=== PATIENT | female | born 1990 | race African-American/Black ===

== ENCOUNTER 2017-04-09 18:14 | Inpatient (IN) | payer OTHER ==
[~2017-04-09] VITALS: Ht 162.6 cm; Wt 83.9 kg
[2017-04-09 19:22] LABS: BASO % 0 % (0-3); EOS % 1 % (0-3); HEMATOCRIT 38.5 % (36.0-47.0); HEMOGLOBIN 12.8 g/dL (12.0-15.5); LYMPH # 2.1 x10^3/uL (1.0-4.8); LYMPH % 29 % (24-48); MEAN CORPUSCULAR HEMOGLOBIN 30 pg (25-35); MEAN CORPUSCULAR HGB CONC 33 g/dL (31-37); MEAN CORPUSCULAR VOLUME 90 fL (79-100); MONO % 6 % (0-9); NEUT % 65 % (31-73); PLATELET COUNT 251 x10^3/uL (140-400); RED BLOOD COUNT 4.27 x10^6/uL (3.50-5.40); RED CELL DISTRIBUTION WIDTH 13.5 % (11.5-14.5); WHITE BLOOD COUNT 7.2 x10^3/uL (4.0-11.0)
[2017-04-09 19:25] LABS: BARBITURATES NEG (NEG); BENZODIAZEPINES NEG (NEG); CANNABINOIDS NEG (NEG); COCAINE POS (NEG); METHADONE NEG (NEG); OPIATES NEG (NEG); PHENCYCLIDINE NEG (NEG)
[2017-04-09 19:31] LABS: CREATININE 0.9 mg/dL (0.6-1.0); GFR 90.2; NEG OBC SER NEG; POS OBC SER POS; POTASSIUM 3.7 mmol/L (3.5-5.1)
[2017-04-09 19:36] LABS: ALBUMIN 3.3 g/dL (3.4-5.0); ALBUMIN/GLOBULIN RATIO 0.8 (1.0-1.7); TOTAL BILIRUBIN 0.2 mg/dL (0.2-1.0); TOTAL PROTEIN 7.5 g/dL (6.4-8.2)
--- NOTE | 2017-04-09 19:38 | PDOC1 ---
History and Physical Date of Admission Date of Admission 04/09/17 Identification/Chief Complaint Chief Complaint suicidal ideation Problems: Source Source: Chart review, Patient History of Present Illness History of Present Illness 27yo F, was sent by family for taking ativan for suicide. pt is drowsy in ER3, most history got from ERP. PT took about 25pills of 1mg ativan today to try to kill herself, then told family who sent her here. When i asked her why and how much she took, she doesnot answer me. She looks drowsy, arousable, but not willing to answer my questions. She also denies ideation to hurt other people, but refuse to say if still suicide now or not. denies fever, chills, sob, chest pain. most labs are pending. Past Medical History Past Medical History none Past Surgical History Past Surgical History: No pertinent history Family History Family History: Hypertension Social History Smoke: No ALCOHOL: none Drugs: None Allergies Allergies Allergies Coded Allergies Type Severity Reaction Last Updated Verified No Known Drug Allergies 05/17/15 No ROS Review of System CONSTITUTIONAL: No fever or chills EYES: No recent changes SKIN: No rash or itching CARDIOVASCULAR: No chest pain, syncope, palpitations, or edema RESPIRATORY: No SOB or cough GASTROINTESTINAL: No nausea, vomiting or abdominal pain NEUROLOGICAL: No headaches or weakness ENDOCRINE: No cold or heat intolerance GENITOURINARY: No urgency or frequency of urination MUSCULOSKELETAL: No back pain or joint pain LYMPHATICS: No enlarged lymph nodes PSYCHIATRIC: No anxiety or depression Physical Exam Physical Exam GEN.: No apparent distress. drowsy HEENT: Head is normocephalic, atraumatic NECK: Supple. LUNGS: Clear to auscultation. HEART: RRR, S1, S2 present. Peripheral pulses intact ABDOMEN: Soft, nontender. Positive bowel sounds. EXTREMITIES: Without any cyanosis. NEUROLOGIC: Normal speech, normal tone PSYCHIATRIC: Normal affect, normal mood. SKIN: No ulcerations Vitals Vitals Vital Signs Date Time Temp Pulse Resp B/P (MAP) Pulse Ox O2 Delivery O2 Flow Rate FiO2 04/09/17 18:26 99.0 80 18 135/77 (96) 98 Room Air 99.0 Labs Labs Laboratory Tests Test 04/09/17 18:40 White Blood Count 7.2 x10^3/uL (4.0-11.0) Red Blood Count 4.27 x10^6/uL (3.50-5.40) Hemoglobin 12.8 g/dL (12.0-15.5) Hematocrit 38.5 % (36.0-47.0) Mean Corpuscular Volume 90 fL (79-100) Mean Corpuscular Hemoglobin 30 pg (25-35) Mean Corpuscular Hemoglobin Concent 33 g/dL (31-37) Red Cell Distribution Width 13.5 % (11.5-14.5) Platelet Count 251 x10^3/uL (140-400) Neutrophils (%) (Auto) 65 % (31-73) Lymphocytes (%) (Auto) 29 % (24-48) Monocytes (%) (Auto) 6 % (0-9) Eosinophils (%) (Auto) 1 % (0-3) Basophils (%) (Auto) 0 % (0-3) Neutrophils # (Auto) 4.7 x10^3uL (1.8-7.7) Lymphocytes # (Auto) 2.1 x10^3/uL (1.0-4.8) Monocytes # (Auto) 0.4 x10^3/uL (0.0-1.1) Eosinophils # (Auto) 0.0 x10^3/uL (0.0-0.7) Basophils # (Auto) 0.0 x10^3/uL (0.0-0.2) Serum Test, Qualitative Negative (NEG) Laboratory Tests Test 04/09/17 18:40 White Blood Count 7.2 x10^3/uL (4.0-11.0) Red Blood Count 4.27 x10^6/uL (3.50-5.40) Hemoglobin 12.8 g/dL (12.0-15.5) Hematocrit 38.5 % (36.0-47.0) Mean Corpuscular Volume 90 fL (79-100) Mean Corpuscular Hemoglobin 30 pg (25-35) Mean Corpuscular Hemoglobin Concent 33 g/dL (31-37) Red Cell Distribution Width 13.5 % (11.5-14.5) Platelet Count 251 x10^3/uL (140-400) Neutrophils (%) (Auto) 65 % (31-73) Lymphocytes (%) (Auto) 29 % (24-48) Monocytes (%) (Auto) 6 % (0-9) Eosinophils (%) (Auto) 1 % (0-3) Basophils (%) (Auto) 0 % (0-3) Neutrophils # (Auto) 4.7 x10^3uL (1.8-7.7) Lymphocytes # (Auto) 2.1 x10^3/uL (1.0-4.8) Monocytes # (Auto) 0.4 x10^3/uL (0.0-1.1) Eosinophils # (Auto) 0.0 x10^3/uL (0.0-0.7) Basophils # (Auto) 0.0 x10^3/uL (0.0-0.2) Serum Test, Qualitative Negative (NEG) VTE Prophylaxis Ordered VTE Prophylaxis Devices: Yes VTE Pharmacological Prophylaxi: Yes Assessment/Plan Assessment/Plan ativan overdose suicidal ideation plan: ICU monitor npo for now, when more awake , should be able to take po diet 1 to 1 ob PAT consult ivf dvt, gi ppx fu labs IGNACIO DICKERSON MD Apr 09, 2017 19:38
[2017-04-09 19:41] LABS: ETHANOL < 10 mg/dL (0-10)
[2017-04-09] MEDS ORDERED: ONDANSETRON PF 4 MG/2 ML VIAL. IV PRN ×2 (19:45→21:45)
[2017-04-09] MEDS ORDERED: MORPHINE SULFATE 4 MG/ML DISP.SYRIN. IV PRN (19:45)
[2017-04-09] MEDS ORDERED: IV NORMAL SALINE 1000ML BAG 1,000 ML IV PRN (19:45)
[2017-04-09] MEDS ORDERED: ACETAMINOPHEN 325 MG TABLET. PO PRN (19:45)
[2017-04-09] MEDS ORDERED: traMADol 50 MG TABLET PO PRN (19:45)
[2017-04-09] MEDS ORDERED: hydrALAZINE 20 MG/ML VIAL. IVP PRN (19:45)
[2017-04-09] MEDS ORDERED: DOCUSATE SODIUM 100 MG CAPSULE. PO PRN (19:45)
[2017-04-09] MEDS: ENOXAPARIN 40 MG/0.4 ML SYRINGE. SQ SCH (20:19)
[2017-04-09] MEDS: FAMOTIDINE 20 MG/2 ML VIAL IVP SCH (20:53)
--- NOTE | 2017-04-09 21:15 | PHYS DOC ---
Past Medical History Past Medical History: Anxiety, Depression Past Surgical History: Cholecystectomy Alcohol Use: Occasionally Drug Use: None Adult General Chief Complaint Chief Complaint: OVERDOSE HPI HPI Patient is a 27 year old -[place] female with history of depression, anxiety and previous intentional drug overdose who presents with intentional drug overdose. Patient states she took between 25-30 mg Ativan tablets prior to ED arrival. Patient is unable to provide timeline is minimally cooperative with history. Patient also has prescriptions for trazodone and Ambien on her person but denies taking either of these medications. Patient last filled Ativan prescription 6 days prior to ED arrival. Patient has somnolence. She is tearful Review of Systems Review of Systems Constitutional: Denies fever or chills [] Eyes: Denies change in visual acuity, redness, or eye pain [] HENT: Denies nasal congestion or sore throat [] Respiratory: Denies cough or shortness of breath [] Cardiovascular: No additional information not addressed in HPI [] GI: Denies abdominal pain, nausea, vomiting, bloody stools or diarrhea [] : Denies dysuria or hematuria [] Musculoskeletal: Denies back pain or joint pain [] Integument: Denies rash or skin lesions [] Neurologic: Denies headache, focal weakness or sensory changes [] Endocrine: Denies polyuria or polydipsia [] Current Medications Current Medications Current Medications Medications (Trade) Dose Ordered Sig/Melissa Start Time Stop Time Status Last Admin Dose Admin Acetaminophen (Tylenol) 650 mg PRN Q6HRS PRN 04/09/17 19:45 Docusate Sodium (Colace) 100 mg PRN DAILY PRN 04/09/17 19:45 Enoxaparin Sodium (Lovenox 40mg Syringe) 40 mg Q24H 04/09/17 20:00 04/09/17 20:19 40 MG Famotidine (Pepcid) 20 mg QHS 04/09/17 21:00 04/09/17 20:53 20 MG Hydralazine HCl (Apresoline) 10 mg PRN Q4HRS PRN 04/09/17 19:45 Morphine Sulfate 2 mg PRN Q2HR PRN 04/09/17 19:45 Ondansetron HCl (Zofran) 4 mg PRN Q6HRS PRN 04/09/17 19:45 Sodium Chloride 1,000 ml @ 100 mls/hr CONT PRN 04/09/17 19:45 Tramadol HCl (Ultram) 50 mg PRN Q6HRS PRN 04/09/17 19:45 Allergies Allergies Allergies Coded Allergies Type Severity Reaction Last Updated Verified No Known Drug Allergies 05/17/15 No Physical Exam Physical Exam Constitutional: Well developed, well nourished, no acute distress, non-toxic appearance. [] HENT: Normocephalic, atraumatic, bilateral external ears normal, oropharynx moist, no oral exudates, nose normal. [] Eyes: PERRLA, EOMI, conjunctiva normal, no discharge. [] Neck: Normal range of motion, no tenderness, supple, no stridor. [] Cardiovascular:Heart rate regular rhythm, no murmur [] Lungs & Thorax: Bilateral breath sounds clear to auscultation [] Abdomen: Bowel sounds normal, soft, no tenderness, no masses, no pulsatile masses. [] Skin: Warm, dry, no erythema, no rash. [] Back: No tenderness, no CVA tenderness. [] Extremities: No tenderness, no cyanosis, no clubbing, ROM intact, no edema. [] Neurologic: Alert and oriented X 3, normal motor function, normal sensory function, no focal deficits noted. [] Psychologic: Affect normal, judgement normal, mood normal. [] Current Patient Data Vital Signs Vital Signs Date Time Temp Pulse Resp B/P (MAP) Pulse Ox O2 Delivery O2 Flow Rate FiO2 04/09/17 20:00 86 18 112/75 (87) 97 04/09/17 18:26 99.0 Room Air 99.0 Lab Values Laboratory Tests Test 04/09/17 18:40 04/09/17 19:05 White Blood Count 7.2 x10^3/uL (4.0-11.0) Red Blood Count 4.27 x10^6/uL (3.50-5.40) Hemoglobin 12.8 g/dL (12.0-15.5) Hematocrit 38.5 % (36.0-47.0) Mean Corpuscular Volume 90 fL (79-100) Mean Corpuscular Hemoglobin 30 pg (25-35) Mean Corpuscular Hemoglobin Concent 33 g/dL (31-37) Red Cell Distribution Width 13.5 % (11.5-14.5) Platelet Count 251 x10^3/uL (140-400) Neutrophils (%) (Auto) 65 % (31-73) Lymphocytes (%) (Auto) 29 % (24-48) Monocytes (%) (Auto) 6 % (0-9) Eosinophils (%) (Auto) 1 % (0-3) Basophils (%) (Auto) 0 % (0-3) Neutrophils # (Auto) 4.7 x10^3uL (1.8-7.7) Lymphocytes # (Auto) 2.1 x10^3/uL (1.0-4.8) Monocytes # (Auto) 0.4 x10^3/uL (0.0-1.1) Eosinophils # (Auto) 0.0 x10^3/uL (0.0-0.7) Basophils # (Auto) 0.0 x10^3/uL (0.0-0.2) Sodium Level 138 mmol/L (136-145) Potassium Level 3.7 mmol/L (3.5-5.1) Chloride Level 103 mmol/L (98-107) Carbon Dioxide Level 27 mmol/L (21-32) Anion Gap 8 (6-14) Blood Urea Nitrogen 9 mg/dL (7-20) Creatinine 0.9 mg/dL (0.6-1.0) Estimated GFR (Cockcroft-Gault) 90.2 BUN/Creatinine Ratio 10 (6-20) Glucose Level 81 mg/dL (70-99) Calcium Level 9.0 mg/dL (8.5-10.1) Total Bilirubin 0.2 mg/dL (0.2-1.0) Aspartate Amino Transferase (AST) 12 U/L (15-37) L Alanine Aminotransferase (ALT) 19 U/L (14-59) Alkaline Phosphatase 70 U/L (46-116) Total Protein 7.5 g/dL (6.4-8.2) Albumin 3.3 g/dL (3.4-5.0) L Albumin/Globulin Ratio 0.8 (1.0-1.7) L Serum Test, Qualitative Negative (NEG) Acetaminophen Level < 2 mcg/ml (10-30) L Acetaminophen Last Dose Date Unknown Acetaminophen Last Dose Time Unknown Ethyl Alcohol Level < 10 mg/dL (0-10) Urine Opiates Screen Neg (NEG) Urine Methadone Screen Neg (NEG) Urine Barbiturates Neg (NEG) Urine Phencyclidine Screen Neg (NEG) Urine Amphetamine/Methamphetamine Neg (NEG) Urine Benzodiazepines Screen Neg (NEG) Urine Cocaine Screen Pos (NEG) Urine Cannabinoids Screen Neg (NEG) Urine Ethyl Alcohol Neg (NEG) Laboratory Tests 04/09/17 18:40 Laboratory Tests 04/09/17 18:40 EKG EKG [EKG: Normal sinus rhythm, st T wave changes, QTC normal, normal QRS interval.] Radiology/Procedures Radiology/Procedures [] Course & Med Decision Making Course & Med Decision Making Pertinent Labs and Imaging studies reviewed. (See chart for details) [Presentation consistent with Ativan overdose. Patient's vital signs stable. Patient is alert and able to follow commands throughout stay in the ED. Airway remains intact. Will admit to ICU for further observation. Dr. Randolph in the ED for admission] Dragon Disclaimer Dragon Disclaimer This electronic medical record was generated, in whole or in part, using a voice recognition dictation system. Departure Departure Impression: Primary Impression: Suicidal behavior Additional Impression: Intentional drug overdose Disposition: ADMITTED INPATIENT Admitting Physician: Juan F Randolph Condition: STABLE Referrals: NO PCP (PCP) Problem Qualifiers NEELIMA YANES DO Apr 09, 2017 21:15
[2017-04-10 05:38] LABS: BASO % 1 % (0-3); EOS % 1 % (0-3); HEMATOCRIT 38.5 % (36.0-47.0); HEMOGLOBIN 13.3 g/dL (12.0-15.5); LYMPH # 2.1 x10^3/uL (1.0-4.8); LYMPH % 38 % (24-48); MEAN CORPUSCULAR HEMOGLOBIN 31 pg (25-35); MEAN CORPUSCULAR HGB CONC 35 g/dL (31-37); MEAN CORPUSCULAR VOLUME 89 fL (79-100); MONO % 5 % (0-9); NEUT % 55 % (31-73); PLATELET COUNT 259 x10^3/uL (140-400); RED BLOOD COUNT 4.34 x10^6/uL (3.50-5.40); RED CELL DISTRIBUTION WIDTH 13.2 % (11.5-14.5); WHITE BLOOD COUNT 5.5 x10^3/uL (4.0-11.0)
[2017-04-10 06:13] LABS: CREATININE 0.8 mg/dL (0.6-1.0); GFR 103.3; POTASSIUM 3.6 mmol/L (3.5-5.1)
--- NOTE | 2017-04-10 06:58 | EKG ---
[facility] [address] [place] [address] Test Date: 2017-04-09 Test Time: 18:56:14 Pat Name: HELDER VICTORIA Department: Room: [facility] Gender: F Receiving Worker: : 1990 Requested By: NEELIMA YANES Order Number: [id number] Reading MD: Javid Connolly Measurements Intervals [place] Rate: 76 P: 52 NE: 168 QRS: 73 QRSD: 82 T: 41 QT: 376 QTc: 422 Interpretive Statements SINUS RHYTHM QRS(T) CONTOUR ABNORMALITY CANNOT RULE OUT ANTEROSEPTAL MYOCARDIAL DAMAGE T ABNORMALITY IN ANTERIOR LEADS Electronically Signed On 05-02-2017 15:59:41 CDT by Javid Connolly
[2017-04-10 08:35] VITALS: BP 108/72
[2017-04-10] MEDS ORDERED: LORA-434 PO (09:07)
[2017-04-10] MEDS ORDERED: ZOLP10TA PO (09:08)
[2017-04-10] MEDS ORDERED: TRAZ50TA15 PO (09:10)
[2017-04-10] MEDS ORDERED: ORTHOEVRA (09:12)
[2017-04-10] MEDS ORDERED: ESCITALOPRAM OX10 MG PO (09:12)
--- NOTE | 2017-04-10 10:58 | PDOC ---
PROGRESS NOTES Chief Complaint Chief Complaint Suicidal Ideation Attempted OD depression Anxiety History of Present Illness History of Present Illness 27 y/o female presents with SI and OD attempt. The pt reportedly took around 25- 30 tablets of 1 mg Ativan, after which she told her family, who brought the patient to the ED. She was then admitted. This patient has a hx of depression, as well as, anxiety for which she is prescribed the Ativan. She also has a history of SI and previous drug overdose attempts. Pt seen at bedside. She is awake and able to hold a full conversation, however; she does not make good eye contact. She appears well and is in no acute distress. When discussing her motive for her OD attempt the patient reports that she has 2 children that she is raising all by herself which makes things difficult for her. The father of the children does no pay child support and does not see the them. She reports financial troubles in that her car recently broke down. She wanted to trade it in but was not able to due to financial reasons. The patient continues to report SI and when asked if she is currently suicidal stated "I dont think it stops". Also of note, the patients urine drug screen is positive for cocaine. Will continue 1:1 monitoring. Await PAT input for further plan of care. Vitals Vitals Vital Signs Date Time Temp Pulse Resp B/P (MAP) Pulse Ox O2 Delivery O2 Flow Rate FiO2 04/10/17 08:48 Room Air 04/10/17 08:35 98.0 82 20 108/72 (84) 98 98.0 Physical Exam Physical Exam Speaks in full sentences. Able to hold a full conversation. Poor eye contact. Flat affect. General: Alert, Oriented X3, Cooperative, No acute distress Heart: Regular rate, Normal S1, Normal S2 Lungs: Clear Abdomen: Normal bowel sounds, Soft, No tenderness, No hepatosplenomegaly, No masses Extremities: No clubbing, No cyanosis, No edema, Normal pulses Skin: No rashes, No breakdown Labs LABS Laboratory Tests Test 04/09/17 18:40 04/09/17 19:05 04/10/17 05:26 White Blood Count 7.2 x10^3/uL (4.0-11.0) 5.5 x10^3/uL (4.0-11.0) Red Blood Count 4.27 x10^6/uL (3.50-5.40) 4.34 x10^6/uL (3.50-5.40) Hemoglobin 12.8 g/dL (12.0-15.5) 13.3 g/dL (12.0-15.5) Hematocrit 38.5 % (36.0-47.0) 38.5 % (36.0-47.0) Mean Corpuscular Volume 90 fL (79-100) 89 fL (79-100) Mean Corpuscular Hemoglobin 30 pg (25-35) 31 pg (25-35) Mean Corpuscular Hemoglobin Concent 33 g/dL (31-37) 35 g/dL (31-37) Red Cell Distribution Width 13.5 % (11.5-14.5) 13.2 % (11.5-14.5) Platelet Count 251 x10^3/uL (140-400) 259 x10^3/uL (140-400) Neutrophils (%) (Auto) 65 % (31-73) 55 % (31-73) Lymphocytes (%) (Auto) 29 % (24-48) 38 % (24-48) Monocytes (%) (Auto) 6 % (0-9) 5 % (0-9) Eosinophils (%) (Auto) 1 % (0-3) 1 % (0-3) Basophils (%) (Auto) 0 % (0-3) 1 % (0-3) Neutrophils # (Auto) 4.7 x10^3uL (1.8-7.7) 3.0 x10^3uL (1.8-7.7) Lymphocytes # (Auto) 2.1 x10^3/uL (1.0-4.8) 2.1 x10^3/uL (1.0-4.8) Monocytes # (Auto) 0.4 x10^3/uL (0.0-1.1) 0.3 x10^3/uL (0.0-1.1) Eosinophils # (Auto) 0.0 x10^3/uL (0.0-0.7) 0.0 x10^3/uL (0.0-0.7) Basophils # (Auto) 0.0 x10^3/uL (0.0-0.2) 0.0 x10^3/uL (0.0-0.2) Sodium Level 138 mmol/L (136-145) 139 mmol/L (136-145) Potassium Level 3.7 mmol/L (3.5-5.1) 3.6 mmol/L (3.5-5.1) Chloride Level 103 mmol/L (98-107) 104 mmol/L (98-107) Carbon Dioxide Level 27 mmol/L (21-32) 29 mmol/L (21-32) Anion Gap 8 (6-14) 6 (6-14) Blood Urea Nitrogen 9 mg/dL (7-20) 7 mg/dL (7-20) Creatinine 0.9 mg/dL (0.6-1.0) 0.8 mg/dL (0.6-1.0) Estimated GFR (Cockcroft-Gault) 90.2 103.3 BUN/Creatinine Ratio 10 (6-20) Glucose Level 81 mg/dL (70-99) 80 mg/dL (70-99) Calcium Level 9.0 mg/dL (8.5-10.1) 9.0 mg/dL (8.5-10.1) Total Bilirubin 0.2 mg/dL (0.2-1.0) Aspartate Amino Transf (AST/SGOT) 12 U/L (15-37) Alanine Aminotransferase (ALT/SGPT) 19 U/L (14-59) Alkaline Phosphatase 70 U/L (46-116) Total Protein 7.5 g/dL (6.4-8.2) Albumin 3.3 g/dL (3.4-5.0) Albumin/Globulin Ratio 0.8 (1.0-1.7) Serum Test, Qualitative Negative (NEG) Acetaminophen Level < 2 mcg/ml (10-30) Acetaminophen Last Dose Date Unknown Acetaminophen Last Dose Time Unknown Ethyl Alcohol Level < 10 mg/dL (0-10) Urine Opiates Screen Neg (NEG) Urine Methadone Screen Neg (NEG) Urine Barbiturates Neg (NEG) Urine Phencyclidine Screen Neg (NEG) Urine Amphetamine/Methamphetamine Neg (NEG) Urine Benzodiazepines Screen Neg (NEG) Urine Cocaine Screen Pos (NEG) Urine Cannabinoids Screen Neg (NEG) Urine Ethyl Alcohol Neg (NEG) Review of Systems Review of Systems Gen: + fatigue, no fevers or chills CV: No CP or palpitations Resp: No SOB or wheezing psych: + SI, denies HI Assessment and Plan Assessmemt and Plan Problems Medical Problems: (1) Intentional drug overdose Status: Acute Assessment: SI Intentional drug OD history of intentional drug OD anxiety depression Plan: continue to monitor with 1:1 observation PO diet if patient tolerates home meds PT/OT recheck labs Await PAT input for further plan of care Problems: Comment Review of Relevant I have reviewed the following items geno (where applicable) has been applied. Labs Laboratory Tests Test 04/09/17 18:40 04/09/17 19:05 04/10/17 05:26 White Blood Count 7.2 x10^3/uL (4.0-11.0) 5.5 x10^3/uL (4.0-11.0) Red Blood Count 4.27 x10^6/uL (3.50-5.40) 4.34 x10^6/uL (3.50-5.40) Hemoglobin 12.8 g/dL (12.0-15.5) 13.3 g/dL (12.0-15.5) Hematocrit 38.5 % (36.0-47.0) 38.5 % (36.0-47.0) Mean Corpuscular Volume 90 fL (79-100) 89 fL (79-100) Mean Corpuscular Hemoglobin 30 pg (25-35) 31 pg (25-35) Mean Corpuscular Hemoglobin Concent 33 g/dL (31-37) 35 g/dL (31-37) Red Cell Distribution Width 13.5 % (11.5-14.5) 13.2 % (11.5-14.5) Platelet Count 251 x10^3/uL (140-400) 259 x10^3/uL (140-400) Neutrophils (%) (Auto) 65 % (31-73) 55 % (31-73) Lymphocytes (%) (Auto) 29 % (24-48) 38 % (24-48) Monocytes (%) (Auto) 6 % (0-9) 5 % (0-9) Eosinophils (%) (Auto) 1 % (0-3) 1 % (0-3) Basophils (%) (Auto) 0 % (0-3) 1 % (0-3) Neutrophils # (Auto) 4.7 x10^3uL (1.8-7.7) 3.0 x10^3uL (1.8-7.7) Lymphocytes # (Auto) 2.1 x10^3/uL (1.0-4.8) 2.1 x10^3/uL (1.0-4.8) Monocytes # (Auto) 0.4 x10^3/uL (0.0-1.1) 0.3 x10^3/uL (0.0-1.1) Eosinophils # (Auto) 0.0 x10^3/uL (0.0-0.7) 0.0 x10^3/uL (0.0-0.7) Basophils # (Auto) 0.0 x10^3/uL (0.0-0.2) 0.0 x10^3/uL (0.0-0.2) Sodium Level 138 mmol/L (136-145) 139 mmol/L (136-145) Potassium Level 3.7 mmol/L (3.5-5.1) 3.6 mmol/L (3.5-5.1) Chloride Level 103 mmol/L (98-107) 104 mmol/L (98-107) Carbon Dioxide Level 27 mmol/L (21-32) 29 mmol/L (21-32) Anion Gap 8 (6-14) 6 (6-14) Blood Urea Nitrogen 9 mg/dL (7-20) 7 mg/dL (7-20) Creatinine 0.9 mg/dL (0.6-1.0) 0.8 mg/dL (0.6-1.0) Estimated GFR (Cockcroft-Gault) 90.2 103.3 BUN/Creatinine Ratio 10 (6-20) Glucose Level 81 mg/dL (70-99) 80 mg/dL (70-99) Calcium Level 9.0 mg/dL (8.5-10.1) 9.0 mg/dL (8.5-10.1) Total Bilirubin 0.2 mg/dL (0.2-1.0) Aspartate Amino Transf (AST/SGOT) 12 U/L (15-37) Alanine Aminotransferase (ALT/SGPT) 19 U/L (14-59) Alkaline Phosphatase 70 U/L (46-116) Total Protein 7.5 g/dL (6.4-8.2) Albumin 3.3 g/dL (3.4-5.0) Albumin/Globulin Ratio 0.8 (1.0-1.7) Serum Test, Qualitative Negative (NEG) Acetaminophen Level < 2 mcg/ml (10-30) Acetaminophen Last Dose Date Unknown Acetaminophen Last Dose Time Unknown Ethyl Alcohol Level < 10 mg/dL (0-10) Urine Opiates Screen Neg (NEG) Urine Methadone Screen Neg (NEG) Urine Barbiturates Neg (NEG) Urine Phencyclidine Screen Neg (NEG) Urine Amphetamine/Methamphetamine Neg (NEG) Urine Benzodiazepines Screen Neg (NEG) Urine Cocaine Screen Pos (NEG) Urine Cannabinoids Screen Neg (NEG) Urine Ethyl Alcohol Neg (NEG) Laboratory Tests Test 04/09/17 18:40 04/09/17 19:05 04/10/17 05:26 White Blood Count 7.2 x10^3/uL (4.0-11.0) 5.5 x10^3/uL (4.0-11.0) Red Blood Count 4.27 x10^6/uL (3.50-5.40) 4.34 x10^6/uL (3.50-5.40) Hemoglobin 12.8 g/dL (12.0-15.5) 13.3 g/dL (12.0-15.5) Hematocrit 38.5 % (36.0-47.0) 38.5 % (36.0-47.0) Mean Corpuscular Volume 90 fL (79-100) 89 fL (79-100) Mean Corpuscular Hemoglobin 30 pg (25-35) 31 pg (25-35) Mean Corpuscular Hemoglobin Concent 33 g/dL (31-37) 35 g/dL (31-37) Red Cell Distribution Width 13.5 % (11.5-14.5) 13.2 % (11.5-14.5) Platelet Count 251 x10^3/uL (140-400) 259 x10^3/uL (140-400) Neutrophils (%) (Auto) 65 % (31-73) 55 % (31-73) Lymphocytes (%) (Auto) 29 % (24-48) 38 % (24-48) Monocytes (%) (Auto) 6 % (0-9) 5 % (0-9) Eosinophils (%) (Auto) 1 % (0-3) 1 % (0-3) Basophils (%) (Auto) 0 % (0-3) 1 % (0-3) Neutrophils # (Auto) 4.7 x10^3uL (1.8-7.7) 3.0 x10^3uL (1.8-7.7) Lymphocytes # (Auto) 2.1 x10^3/uL (1.0-4.8) 2.1 x10^3/uL (1.0-4.8) Monocytes # (Auto) 0.4 x10^3/uL (0.0-1.1) 0.3 x10^3/uL (0.0-1.1) Eosinophils # (Auto) 0.0 x10^3/uL (0.0-0.7) 0.0 x10^3/uL (0.0-0.7) Basophils # (Auto) 0.0 x10^3/uL (0.0-0.2) 0.0 x10^3/uL (0.0-0.2) Sodium Level 138 mmol/L (136-145) 139 mmol/L (136-145) Potassium Level 3.7 mmol/L (3.5-5.1) 3.6 mmol/L (3.5-5.1) Chloride Level 103 mmol/L (98-107) 104 mmol/L (98-107) Carbon Dioxide Level 27 mmol/L (21-32) 29 mmol/L (21-32) Anion Gap 8 (6-14) 6 (6-14) Blood Urea Nitrogen 9 mg/dL (7-20) 7 mg/dL (7-20) Creatinine 0.9 mg/dL (0.6-1.0) 0.8 mg/dL (0.6-1.0) Estimated GFR (Cockcroft-Gault) 90.2 103.3 BUN/Creatinine Ratio 10 (6-20) Glucose Level 81 mg/dL (70-99) 80 mg/dL (70-99) Calcium Level 9.0 mg/dL (8.5-10.1) 9.0 mg/dL (8.5-10.1) Total Bilirubin 0.2 mg/dL (0.2-1.0) Aspartate Amino Transf (AST/SGOT) 12 U/L (15-37) Alanine Aminotransferase (ALT/SGPT) 19 U/L (14-59) Alkaline Phosphatase 70 U/L (46-116) Total Protein 7.5 g/dL (6.4-8.2) Albumin 3.3 g/dL (3.4-5.0) Albumin/Globulin Ratio 0.8 (1.0-1.7) Serum Test, Qualitative Negative (NEG) Acetaminophen Level < 2 mcg/ml (10-30) Acetaminophen Last Dose Date Unknown Acetaminophen Last Dose Time Unknown Ethyl Alcohol Level < 10 mg/dL (0-10) Urine Opiates Screen Neg (NEG) Urine Methadone Screen Neg (NEG) Urine Barbiturates Neg (NEG) Urine Phencyclidine Screen Neg (NEG) Urine Amphetamine/Methamphetamine Neg (NEG) Urine Benzodiazepines Screen Neg (NEG) Urine Cocaine Screen Pos (NEG) Urine Cannabinoids Screen Neg (NEG) Urine Ethyl Alcohol Neg (NEG) Medications Current Medications Acetaminophen (Tylenol) 650 mg PRN Q6HRS PRN PO FEVER; Start 04/09/17 at 19:45 Ondansetron HCl (Zofran) 4 mg PRN Q6HRS PRN IV NAUSEA/VOMITING; Start 04/09/17 at 19:45 Morphine Sulfate 2 mg PRN Q2HR PRN IV PAIN; Start 04/09/17 at 19:45 Tramadol HCl (Ultram) 50 mg PRN Q6HRS PRN PO PAIN; Start 04/09/17 at 19:45 Hydralazine HCl (Apresoline) 10 mg PRN Q4HRS PRN IVP ELEVATED BP, SEE COMMENTS ; Start 04/09/17 at 19:45 Docusate Sodium (Colace) 100 mg PRN DAILY PRN PO CONSTIPATION; Start 04/09/17 at 19:45 Sodium Chloride 1,000 ml @ 100 mls/hr CONT PRN IV SEE I/O RECORD; Start at 19:45 Famotidine (Pepcid) 20 mg QHS IVP Last administered on 04/09/17 20:53; Start 04/09/17 at 21:00 Enoxaparin Sodium (Lovenox 40mg Syringe) 40 mg Q24H SQ Last administered on 10/ 2/17at 20:19; Start 04/09/17 at 20:00 Ondansetron HCl (Zofran) 4 mg PRN Q8HRS PRN IV NAUSEA/VOMITING; Start 04/09/17 at 21:45; Stop 04/09/17 at 21:45; Status DC Active Scripts Active Reported Escitalopram Oxalate 10 Mg Tablet 5 Mg PO DAILY [orthoevra] WEEKLY Trazodone Hcl 50 Mg Tablet 25 Mg PO HS Ambien (Zolpidem Tartrate) 10 Mg Tablet 1 Tab PO QHS Ativan (Lorazepam) 1 Mg Tablet 1-2 Mg PO PRN DAILY Vitals/I & O Vital Sign - Last 24 Hours 04/09/17 04/09/17 04/09/17 04/09/17 18:26 18:45 19:00 19:15 Temp 99.0 99.0 Pulse 80 78 78 82 Resp 18 18 20 18 B/P (MAP) 135/77 (96) 125/80 (95) 117/75 (89) 121/68 (85) Pulse Ox 98 100 99 99 O2 Delivery Room Air 04/09/17 04/09/17 04/09/17 04/09/17 19:30 19:45 20:00 20:15 Pulse 82 84 86 76 Resp 18 16 18 20 B/P (MAP) 127/75 (92) 106/71 (83) 112/75 (87) 112/70 (84) Pulse Ox 98 96 97 97 04/09/17 04/09/17 04/09/17 04/09/17 20:30 20:45 21:00 21:15 Pulse 72 72 72 78 Resp 20 18 18 16 B/P (MAP) 109/71 (84) 117/75 (89) 98/55 (69) 104/67 (79) Pulse Ox 96 96 94 96 04/09/17 04/09/17 04/09/17 04/09/17 21:30 21:45 22:00 22:15 Pulse 82 82 76 78 Resp 18 16 18 18 B/P (MAP) 110/58 (75) 115/63 (80) 111/78 (89) 113/77 (89) Pulse Ox 95 96 98 98 04/09/17 04/09/17 04/09/17 04/09/17 22:30 22:45 23:00 23:15 Pulse 60 74 80 70 Resp 16 18 16 18 B/P (MAP) 84/47 (59) 86/54 (65) 107/64 (78) 101/61 (74) Pulse Ox 96 94 97 97 04/09/17 04/09/17 04/10/17 04/10/17 23:30 23:45 00:00 00:15 Pulse 70 70 72 96 Resp 16 18 18 16 B/P (MAP) 97/74 (82) 95/73 (80) 118/70 (86) Pulse Ox 97 97 98 100 04/10/17 04/10/17 04/10/17 04/10/17 00:30 01:15 01:30 01:45 Pulse 66 90 70 74 Resp 18 20 23 19 B/P (MAP) 131/85 (100) 137/74 (95) 127/85 (99) Pulse Ox 100 100 100 99 04/10/17 04/10/17 04/10/17 04/10/17 02:00 02:15 02:30 02:45 Pulse 80 76 68 70 Resp 30 18 20 18 B/P (MAP) 124/74 (91) 118/78 (91) 123/75 (91) 111/71 (84) Pulse Ox 99 99 100 99 04/10/17 04/10/17 04/10/17 04/10/17 03:00 03:15 03:30 03:45 Pulse 74 80 84 86 Resp 18 20 18 20 B/P (MAP) 112/75 (87) 119/71 (87) 118/70 (86) 117/70 (86) Pulse Ox 99 97 97 97 04/10/17 04/10/17 04/10/17 04/10/17 04:00 04:15 04:30 05:00 Pulse 78 72 84 86 Resp 18 18 20 20 B/P (MAP) 128/68 (88) 135/68 (90) 119/74 (89) 87/48 (61) Pulse Ox 97 96 96 95 04/10/17 04/10/17 04/10/17 04/10/17 05:30 06:30 08:35 08:48 Temp 98.0 98.0 Pulse 84 92 82 Resp 18 20 20 B/P (MAP) 118/65 (82) 106/64 (78) 108/72 (84) Pulse Ox 95 97 98 O2 Delivery Room Air Room Air SEBAS BARNEY III DO Apr 10, 2017 10:58
[2017-04-10 11:00] VITALS: BP 111/68
[2017-04-10 15:00] VITALS: BP 112/68
[2017-04-10 19:00] VITALS: BP 119/80
[2017-04-10] MEDS: ENOXAPARIN 40 MG/0.4 ML SYRINGE. SQ SCH (20:36)
[2017-04-10] MEDS: FAMOTIDINE 20 MG/2 ML VIAL IVP SCH (20:36)
[2017-04-10] MEDS ORDERED: ZOLPIDEM 5 MG TABLET. PO PRN (21:45)
[2017-04-10 23:00] VITALS: BP 115/59
[2017-04-11 03:00] VITALS: BP 112/53
[2017-04-11 04:33] LABS: BASO % 0 % (0-3); EOS % 1 % (0-3); HEMATOCRIT 38.5 % (36.0-47.0); HEMOGLOBIN 12.8 g/dL (12.0-15.5); LYMPH # 2.4 x10^3/uL (1.0-4.8); LYMPH % 44 % (24-48); MEAN CORPUSCULAR HEMOGLOBIN 30 pg (25-35); MEAN CORPUSCULAR HGB CONC 33 g/dL (31-37); MEAN CORPUSCULAR VOLUME 91 fL (79-100); MONO % 7 % (0-9); NEUT % 47 % (31-73); PLATELET COUNT 244 x10^3/uL (140-400); RED BLOOD COUNT 4.25 x10^6/uL (3.50-5.40); RED CELL DISTRIBUTION WIDTH 13.4 % (11.5-14.5); WHITE BLOOD COUNT 5.5 x10^3/uL (4.0-11.0)
[2017-04-11 05:01] LABS: CALCIUM 8.7 mg/dL (8.5-10.1); CREATININE 0.9 mg/dL (0.6-1.0); GFR 90.2; POTASSIUM 3.7 mmol/L (3.5-5.1)
[2017-04-11 07:04] VITALS: BP 103/62
[2017-04-11 11:00] VITALS: BP 109/75
--- NOTE | 2017-04-11 11:13 | PDOC ---
PROGRESS NOTES Chief Complaint Chief Complaint Suicidal Ideation Attempted OD depression Anxiety History of Present Illness History of Present Illness Pt was laying in bed and conversant. There was a 1:1 sitter in the room with her. She has no new complaints at this time and is in NAD. She currently has no intent or ideas of hurting herself. She wants to know if she can just leave or if she has to go to [facility]. Discussed plan of care with Pt and sitter including D/C to [facility] today. PAT - will D/C to [facility] when medically stable -medication adjustment needed Vitals Vitals Vital Signs Date Time Temp Pulse Resp B/P (MAP) Pulse Ox O2 Delivery O2 Flow Rate FiO2 04/11/17 07:25 Room Air 04/11/17 07:04 97.7 69 16 103/62 (76) 100 97.7 Physical Exam General: Alert, Oriented X3, Cooperative, No acute distress Heart: Regular rate, Normal S1, Normal S2 Lungs: Clear Abdomen: Normal bowel sounds, Soft, No tenderness, No hepatosplenomegaly, No masses Extremities: No clubbing, No cyanosis, No edema, Normal pulses Skin: No rashes, No breakdown Labs LABS Laboratory Tests Test 04/11/17 03:30 White Blood Count 5.5 x10^3/uL (4.0-11.0) Red Blood Count 4.25 x10^6/uL (3.50-5.40) Hemoglobin 12.8 g/dL (12.0-15.5) Hematocrit 38.5 % (36.0-47.0) Mean Corpuscular Volume 91 fL (79-100) Mean Corpuscular Hemoglobin 30 pg (25-35) Mean Corpuscular Hemoglobin Concent 33 g/dL (31-37) Red Cell Distribution Width 13.4 % (11.5-14.5) Platelet Count 244 x10^3/uL (140-400) Neutrophils (%) (Auto) 47 % (31-73) Lymphocytes (%) (Auto) 44 % (24-48) Monocytes (%) (Auto) 7 % (0-9) Eosinophils (%) (Auto) 1 % (0-3) Basophils (%) (Auto) 0 % (0-3) Neutrophils # (Auto) 2.6 x10^3uL (1.8-7.7) Lymphocytes # (Auto) 2.4 x10^3/uL (1.0-4.8) Monocytes # (Auto) 0.4 x10^3/uL (0.0-1.1) Eosinophils # (Auto) 0.1 x10^3/uL (0.0-0.7) Basophils # (Auto) 0.0 x10^3/uL (0.0-0.2) Sodium Level 141 mmol/L (136-145) Potassium Level 3.7 mmol/L (3.5-5.1) Chloride Level 105 mmol/L (98-107) Carbon Dioxide Level 30 mmol/L (21-32) Anion Gap 6 (6-14) Blood Urea Nitrogen 9 mg/dL (7-20) Creatinine 0.9 mg/dL (0.6-1.0) Estimated GFR (Cockcroft-Gault) 90.2 Glucose Level 90 mg/dL (70-99) Calcium Level 8.7 mg/dL (8.5-10.1) Review of Systems Review of Systems Pt complains of hunger Pt fatigued Pt feeling stressed Assessment and Plan Assessmemt and Plan Problems Medical Problems: (1) Intentional drug overdose Status: Acute Suicidal Ideation Attempted OD depression Anxiety Plan: D/C [facility] Home meds Appreciate PAT assessment possible medication adjustment will follow-up if necessary Problems: Comment Review of Relevant I have reviewed the following items geno (where applicable) has been applied. Labs Laboratory Tests Test 04/09/17 18:40 04/09/17 19:05 04/10/17 05:26 04/11/17 03:30 White Blood Count 7.2 x10^3/uL (4.0-11.0) 5.5 x10^3/uL (4.0-11.0) 5.5 x10^3/uL (4.0-11.0) Red Blood Count 4.27 x10^6/uL (3.50-5.40) 4.34 x10^6/uL (3.50-5.40) 4.25 x10^6/uL (3.50-5.40) Hemoglobin 12.8 g/dL (12.0-15.5) 13.3 g/dL (12.0-15.5) 12.8 g/dL (12.0-15.5) Hematocrit 38.5 % (36.0-47.0) 38.5 % (36.0-47.0) 38.5 % (36.0-47.0) Mean Corpuscular Volume 90 fL (79-100) 89 fL (79-100) 91 fL (79-100) Mean Corpuscular Hemoglobin 30 pg (25-35) 31 pg (25-35) 30 pg (25-35) Mean Corpuscular Hemoglobin Concent 33 g/dL (31-37) 35 g/dL (31-37) 33 g/dL (31-37) Red Cell Distribution Width 13.5 % (11.5-14.5) 13.2 % (11.5-14.5) 13.4 % (11.5-14.5) Platelet Count 251 x10^3/uL (140-400) 259 x10^3/uL (140-400) 244 x10^3/uL (140-400) Neutrophils (%) (Auto) 65 % (31-73) 55 % (31-73) 47 % (31-73) Lymphocytes (%) (Auto) 29 % (24-48) 38 % (24-48) 44 % (24-48) Monocytes (%) (Auto) 6 % (0-9) 5 % (0-9) 7 % (0-9) Eosinophils (%) (Auto) 1 % (0-3) 1 % (0-3) 1 % (0-3) Basophils (%) (Auto) 0 % (0-3) 1 % (0-3) 0 % (0-3) Neutrophils # (Auto) 4.7 x10^3uL (1.8-7.7) 3.0 x10^3uL (1.8-7.7) 2.6 x10^3uL (1.8-7.7) Lymphocytes # (Auto) 2.1 x10^3/uL (1.0-4.8) 2.1 x10^3/uL (1.0-4.8) 2.4 x10^3/uL (1.0-4.8) Monocytes # (Auto) 0.4 x10^3/uL (0.0-1.1) 0.3 x10^3/uL (0.0-1.1) 0.4 x10^3/uL (0.0-1.1) Eosinophils # (Auto) 0.0 x10^3/uL (0.0-0.7) 0.0 x10^3/uL (0.0-0.7) 0.1 x10^3/uL (0.0-0.7) Basophils # (Auto) 0.0 x10^3/uL (0.0-0.2) 0.0 x10^3/uL (0.0-0.2) 0.0 x10^3/uL (0.0-0.2) Sodium Level 138 mmol/L (136-145) 139 mmol/L (136-145) 141 mmol/L (136-145) Potassium Level 3.7 mmol/L (3.5-5.1) 3.6 mmol/L (3.5-5.1) 3.7 mmol/L (3.5-5.1) Chloride Level 103 mmol/L (98-107) 104 mmol/L (98-107) 105 mmol/L (98-107) Carbon Dioxide Level 27 mmol/L (21-32) 29 mmol/L (21-32) 30 mmol/L (21-32) Anion Gap 8 (6-14) 6 (6-14) 6 (6-14) Blood Urea Nitrogen 9 mg/dL (7-20) 7 mg/dL (7-20) 9 mg/dL (7-20) Creatinine 0.9 mg/dL (0.6-1.0) 0.8 mg/dL (0.6-1.0) 0.9 mg/dL (0.6-1.0) Estimated GFR (Cockcroft-Gault) 90.2 103.3 90.2 BUN/Creatinine Ratio 10 (6-20) Glucose Level 81 mg/dL (70-99) 80 mg/dL (70-99) 90 mg/dL (70-99) Calcium Level 9.0 mg/dL (8.5-10.1) 9.0 mg/dL (8.5-10.1) 8.7 mg/dL (8.5-10.1) Total Bilirubin 0.2 mg/dL (0.2-1.0) Aspartate Amino Transf (AST/SGOT) 12 U/L (15-37) Alanine Aminotransferase (ALT/SGPT) 19 U/L (14-59) Alkaline Phosphatase 70 U/L (46-116) Total Protein 7.5 g/dL (6.4-8.2) Albumin 3.3 g/dL (3.4-5.0) Albumin/Globulin Ratio 0.8 (1.0-1.7) Serum Test, Qualitative Negative (NEG) Acetaminophen Level < 2 mcg/ml (10-30) Acetaminophen Last Dose Date Unknown Acetaminophen Last Dose Time Unknown Ethyl Alcohol Level < 10 mg/dL (0-10) Urine Opiates Screen Neg (NEG) Urine Methadone Screen Neg (NEG) Urine Barbiturates Neg (NEG) Urine Phencyclidine Screen Neg (NEG) Urine Amphetamine/Methamphetamine Neg (NEG) Urine Benzodiazepines Screen Neg (NEG) Urine Cocaine Screen Pos (NEG) Urine Cannabinoids Screen Neg (NEG) Urine Ethyl Alcohol Neg (NEG) Laboratory Tests Test 04/11/17 03:30 White Blood Count 5.5 x10^3/uL (4.0-11.0) Red Blood Count 4.25 x10^6/uL (3.50-5.40) Hemoglobin 12.8 g/dL (12.0-15.5) Hematocrit 38.5 % (36.0-47.0) Mean Corpuscular Volume 91 fL (79-100) Mean Corpuscular Hemoglobin 30 pg (25-35) Mean Corpuscular Hemoglobin Concent 33 g/dL (31-37) Red Cell Distribution Width 13.4 % (11.5-14.5) Platelet Count 244 x10^3/uL (140-400) Neutrophils (%) (Auto) 47 % (31-73) Lymphocytes (%) (Auto) 44 % (24-48) Monocytes (%) (Auto) 7 % (0-9) Eosinophils (%) (Auto) 1 % (0-3) Basophils (%) (Auto) 0 % (0-3) Neutrophils # (Auto) 2.6 x10^3uL (1.8-7.7) Lymphocytes # (Auto) 2.4 x10^3/uL (1.0-4.8) Monocytes # (Auto) 0.4 x10^3/uL (0.0-1.1) Eosinophils # (Auto) 0.1 x10^3/uL (0.0-0.7) Basophils # (Auto) 0.0 x10^3/uL (0.0-0.2) Sodium Level 141 mmol/L (136-145) Potassium Level 3.7 mmol/L (3.5-5.1) Chloride Level 105 mmol/L (98-107) Carbon Dioxide Level 30 mmol/L (21-32) Anion Gap 6 (6-14) Blood Urea Nitrogen 9 mg/dL (7-20) Creatinine 0.9 mg/dL (0.6-1.0) Estimated GFR (Cockcroft-Gault) 90.2 Glucose Level 90 mg/dL (70-99) Calcium Level 8.7 mg/dL (8.5-10.1) Medications Current Medications Acetaminophen (Tylenol) 650 mg PRN Q6HRS PRN PO FEVER; Start 04/09/17 at 19:45 Ondansetron HCl (Zofran) 4 mg PRN Q6HRS PRN IV NAUSEA/VOMITING; Start 04/09/17 at 19:45 Morphine Sulfate 2 mg PRN Q2HR PRN IV PAIN; Start 04/09/17 at 19:45 Tramadol HCl (Ultram) 50 mg PRN Q6HRS PRN PO PAIN; Start 04/09/17 at 19:45 Hydralazine HCl (Apresoline) 10 mg PRN Q4HRS PRN IVP ELEVATED BP, SEE COMMENTS ; Start 04/09/17 at 19:45 Docusate Sodium (Colace) 100 mg PRN DAILY PRN PO CONSTIPATION; Start 04/09/17 at 19:45 Sodium Chloride 1,000 ml @ 100 mls/hr CONT PRN IV SEE I/O RECORD; Start at 19:45 Famotidine (Pepcid) 20 mg QHS IVP Last administered on 04/10/17 20:36; Start 04/09/17 at 21:00 Enoxaparin Sodium (Lovenox 40mg Syringe) 40 mg Q24H SQ Last administered on 20:36; Start 04/09/17 at 20:00 Ondansetron HCl (Zofran) 4 mg PRN Q8HRS PRN IV NAUSEA/VOMITING; Start 04/09/17 at 21:45; Stop 04/09/17 at 21:45; Status DC Zolpidem Tartrate (Ambien) 5 mg PRN QHS PRN PO INSOMNIA Last administered on t 22:16; Start 04/10/17 at 21:45 Active Scripts Active Reported Escitalopram Oxalate 10 Mg Tablet 5 Mg PO DAILY [orthoevra] WEEKLY Trazodone Hcl 50 Mg Tablet 25 Mg PO HS Ambien (Zolpidem Tartrate) 10 Mg Tablet 1 Tab PO QHS Ativan (Lorazepam) 1 Mg Tablet 1-2 Mg PO PRN DAILY Vitals/I & O Vital Sign - Last 24 Hours 04/10/17 04/10/17 04/10/17 04/10/17 15:00 19:00 20:10 23:00 Temp 98.4 98.6 97.9 98.4 98.6 97.9 Pulse 90 70 83 Resp 20 20 20 B/P (MAP) 112/68 (83) 119/80 (93) 115/59 (77) Pulse Ox 98 96 98 O2 Delivery Room Air Room Air Room Air Room Air 04/11/17 04/11/17 04/11/17 03:00 07:04 07:25 Temp 97.7 97.7 97.7 97.7 Pulse 67 69 Resp 20 16 B/P (MAP) 112/53 (72) 103/62 (76) Pulse Ox 96 100 O2 Delivery Room Air Room Air Room Air SEBAS BARNEY III DO Apr 11, 2017 11:13
--- NOTE | 2017-04-26 13:47 | DS ---
DATE OF DISCHARGE: 04/11/2017 ADMISSION DIAGNOSIS: Suicidal ideation. DISCHARGE DIAGNOSIS: Resolving suicidal ideation. HOSPITAL COURSE: The patient is a pleasant 27-year-old female who has had ____ psychiatric assessment team. She was discharged to [facility]. DISPOSITION: Inpatient. ACTIVITY: As tolerated. DIET: Low sodium. MEDICATIONS: Please see the MRAD. TOTAL TIME: ____. SEBAS BARNEY DO DR: JULIETA/suki JOB#: [id number] / [id number]
== END 2017-04-11 13:51 | DRG 917 ==
LOC: ER 18:14 → 6 SOUTH 21:00 → OBSVTOIN 04-10 09:23
PROVIDERS: ADMIT Internal Medicine; ATTEND Internal Medicine
DX: T42.4X2A Poisoning by benzodiazepines, intentional self-harm, initial encounter (principal); G92 Toxic encephalopathy; F32.9 Major depressive disorder, single episode, unspecified; F41.9 Anxiety disorder, unspecified; Z82.49 Family history of ischemic heart disease and other diseases of the circulatory system; Z90.49 Acquired absence of other specified parts of digestive tract; Y92.89 Other specified places as the place of occurrence of the external cause
CPT/HCPCS: 36415; 80048; 80053; 80307; 84703; 85025; 93005; G0378; G0379; G0480; J1650; S0028; 99285-25; G0479

== ENCOUNTER 2020-11-08 06:43 | Emergency (ER) | payer MEDICAID, OTHER ==
[~2020-11-08] VITALS: Ht 162.6 cm; Wt 70.0 kg
[~2020-11-08 06:43] MED LIST: ESCITALOPRAM OX10 MG PO; LORA-434 PO; ORTHOEVRA; TRAZ-118 PO; ZOLP10TA PO
[2020-11-08] MEDS ORDERED: IV NORMAL SALINE 1000ML BAG 1,000 ML IV ONE ×2 (07:00→08:45)
--- NOTE | 2020-11-08 07:04 | ED.ADGEN ---
Past Medical History Past Medical History: Anxiety, Depression Past Surgical History: Cholecystectomy Smoking Status: Light Tobacco Smoker Alcohol Use: Occasionally Drug Use: None General Adult EDM: Chief Complaint: CHEST PAIN-CARDIAC NATURE HPI: HPI: Patient is a 30 year old female coming in via EMS for near syncopal symptoms. Patient states she woke up at 5 AM and went to go the bathroom. She will episode of diarrhea and feels lightheaded and like things are "wavy". She has a slight headache. Initially felt clammy and diaphoretic. Denies any chest pain, vision changes. States she otherwise has been well went to sleep around 11. Takes Xanax and Ambien. States she took her Ambien a little bit later than usual last night. No other medical history, family medical history of hyper tension and diabetes. Denies tobacco alcohol and drugs. Review of Systems: Review of Systems: All other systems within normal limits except for as noted in the HPI Current Medications: Current Medications Medications (Trade) Dose Ordered Sig/Melissa Start Time Stop Time Status Last Admin Dose Admin Info (CONTRAST GIVEN -- Rx MONITORING) 1 each PRN DAILY PRN 11/08/20 09:00 11/10/20 08:59 Iohexol (Omnipaque 350 Mg/ml) 90 ml 1X ONCE 11/08/20 08:45 11/08/20 08:50 DC 11/08/20 09:05 90 ML Sodium Chloride 1,000 ml @ 1,000 mls/hr 1X ONCE 11/08/20 08:45 11/08/20 09:44 DC 11/08/20 08:40 1,000 MLS/HR Allergies: Allergies: Allergies Coded Allergies Type Severity Reaction Last Updated Verified No Known Drug Allergies 05/17/15 No Physical Exam: PE: Constitutional: Well developed, well nourished, no acute distress, non-toxic appearance. [] HENT: Normocephalic, atraumatic, bilateral external ears normal, nose normal. [] Eyes: PERRLA, conjunctiva normal, no discharge. Extract was intact [] Neck: No rigidity, supple, no stridor. [] Cardiovascular: Regular rate and rhythm, brisk cap refill, strong symmetric radial pulses [] Lungs & Thorax: Non labored symmetric respirations, no tachypnea or respiratory distress [] Abdomen: Soft, nondistended. Skin: Warm, dry, no erythema, no rash. [] Back: Unremarkable Extremities: No deformities, range of motion grossly intact, no lower extremity edema [] Neurologic: Alert and oriented X 3, no focal deficits noted, no nystagmus. [] Psychologic: Affect normal, judgement normal, mood normal. [] Current Patient Data: Labs: Laboratory Tests Test 11/08/20 06:57 White Blood Count 6.7 x10^3/uL (4.0-11.0) Red Blood Count 4.50 x10^6/uL (3.50-5.40) Hemoglobin 13.9 g/dL (12.0-15.5) Hematocrit 40.8 % (36.0-47.0) Mean Corpuscular Volume 91 fL (79-100) Mean Corpuscular Hemoglobin 31 pg (25-35) Mean Corpuscular Hemoglobin Concent 34 g/dL (31-37) Red Cell Distribution Width 13.4 % (11.5-14.5) Platelet Count 309 x10^3/uL (140-400) Neutrophils (%) (Auto) 60 % (31-73) Lymphocytes (%) (Auto) 31 % (24-48) Monocytes (%) (Auto) 7 % (0-9) Eosinophils (%) (Auto) 2 % (0-3) Basophils (%) (Auto) 1 % (0-3) Neutrophils # (Auto) 4.0 x10^3/uL (1.8-7.7) Lymphocytes # (Auto) 2.1 x10^3/uL (1.0-4.8) Monocytes # (Auto) 0.4 x10^3/uL (0.0-1.1) Eosinophils # (Auto) 0.1 x10^3/uL (0.0-0.7) Basophils # (Auto) 0.1 x10^3/uL (0.0-0.2) D-Dimer (Magui) 0.77 ug/mlFEU (0.00-0.50) H Sodium Level 141 mmol/L (136-145) Potassium Level 3.1 mmol/L (3.5-5.1) L Chloride Level 105 mmol/L (98-107) Carbon Dioxide Level 26 mmol/L (21-32) Anion Gap 10 (6-14) Blood Urea Nitrogen 11 mg/dL (7-20) Creatinine 0.9 mg/dL (0.6-1.0) Estimated GFR (Cockcroft-Gault) 88.4 BUN/Creatinine Ratio 12 (6-20) Glucose Level 140 mg/dL (70-99) H Calcium Level 8.6 mg/dL (8.5-10.1) Phosphorus Level 3.5 mg/dL (2.6-4.7) Magnesium Level 2.1 mg/dL (1.8-2.4) Total Bilirubin 0.5 mg/dL (0.2-1.0) Aspartate Amino Transferase (AST) 15 U/L (15-37) Alanine Aminotransferase (ALT) 19 U/L (14-59) Alkaline Phosphatase 67 U/L (46-116) Troponin I Quantitative < 0.017 ng/mL (0.000-0.055) CW-Dlc-P-Type Natriuretic Peptide 16 pg/mL (0-124) Total Protein 7.5 g/dL (6.4-8.2) Albumin 3.6 g/dL (3.4-5.0) Albumin/Globulin Ratio 0.9 (1.0-1.7) L Ethyl Alcohol Level < 10 mg/dL (0-10) Laboratory Tests 11/08/20 06:57 Laboratory Tests 11/08/20 06:57 Vital Signs: Vital Signs Date Time Temp Pulse Resp B/P (MAP) Pulse Ox O2 Delivery O2 Flow Rate FiO2 11/08/20 06:44 98.3 58 18 111/56 (74) 97 Room Air 98.3 EKG: EKG: Sinus rhythm, heart rate 61 bpm, normal axis, no ST elevation or depression, no ectopy. [] Heart Score: C/O Chest Pain: No Risk Factors: Risk Factors: DM, Current or recent (<one month) smoker, HTN, HLP, family history of CAD, obesity. Risk Scores: Score 0 - 3: 2.5% MACE over next 6 weeks - Discharge Home Score 4 - 6: 20.3% MACE over next 6 weeks - Admit for Clinical Observation Score 7 - 10: 72.7% MACE over next 6 weeks - Early Invasive Strategies Radiology/Procedures: Radiology/Procedures: EXAM: CT chest with contrast - pulmonary embolus protocol CLINICAL HISTORY: Near syncope, high dimer COMPARISON: None. TECHNIQUE: CT of the chest following the administration of intravenous contrast during the pulmonary arterial phase. Axial, coronal and sagittal reformatted images were generated including MIP images. ---PQRS compliance statement - One or more of the following individualized dose reduction techniques were utilized for this study: 1. Automated exposure control 2. Adjustment of the mA and/or kV according to patient size 3. Use of iterative reconstruction technique--- FINDINGS: CHEST: Diagnostic quality: Adequate. Pulmonary emboli: None seen Right heart strain: None Pulmonary arteries: Normal in caliber. Heart is not enlarged. No pericardial effusion. No pleural effusion. No pneumothorax. No mediastinal or hilar lymphadenopathy. No axillary lymphadenopathy. No suspicious lung nodule or mass. No lobar consolidation. Visualized Upper abdomen: Cholecystectomy clips are seen. Bones: No aggressive osseous lesion is seen. IMPRESSION: 1. No evidence for acute pulmonary embolus. [] Course & Med Decision Making: Course & Med Decision Making Pertinent Labs and Imaging studies reviewed. (See chart for details) [] Dragon Disclaimer: Popeye Disclaimer: This electronic medical record was generated, in whole or in part, using a voice recognition dictation system. Departure Departure Impression: Primary Impression: Light headedness Disposition: 01 HOME / SELF CARE / HOMELESS Condition: STABLE Referrals: NO PCP (PCP) Patient Instructions: Near-Syncope ARMANDO REESE MD November 08, 2020 07:04
[2020-11-08 07:07] LABS: BASO # 0.1 x10^3/uL (0.0-0.2); BASO % 1 % (0-3); EOS # 0.1 x10^3/uL (0.0-0.7); EOS % 2 % (0-3); HEMATOCRIT 40.8 % (36.0-47.0); HEMOGLOBIN 13.9 g/dL (12.0-15.5); LYMPH # 2.1 x10^3/uL (1.0-4.8); LYMPH % 31 % (24-48); MEAN CORPUSCULAR HEMOGLOBIN 31 pg (25-35); MEAN CORPUSCULAR HGB CONC 34 g/dL (31-37); MEAN CORPUSCULAR VOLUME 91 fL (79-100); MONO # 0.4 x10^3/uL (0.0-1.1); MONO % 7 % (0-9); NEUT % 60 % (31-73); PLATELET COUNT 309 x10^3/uL (140-400); RED CELL DISTRIBUTION WIDTH 13.4 % (11.5-14.5); WHITE BLOOD COUNT 6.7 x10^3/uL (4.0-11.0)
[2020-11-08 07:19] LABS: CALCIUM 8.6 mg/dL (8.5-10.1); CREATININE 0.9 mg/dL (0.6-1.0); GFR 88.4; POTASSIUM 3.1 mmol/L (3.5-5.1)
[2020-11-08 07:27] LABS: ALBUMIN 3.6 g/dL (3.4-5.0); ALBUMIN/GLOBULIN RATIO 0.9 (1.0-1.7); MAGNESIUM 2.1 mg/dL (1.8-2.4); PHOSPHORUS 3.5 mg/dL (2.6-4.7); TOTAL BILIRUBIN 0.5 mg/dL (0.2-1.0); TOTAL PROTEIN 7.5 g/dL (6.4-8.2)
--- NOTE | 2020-11-08 07:37 | RAD ---
INDICATION: Reason: near syncope / Spl. Instructions: / History: COMPARISON: January 02, 2010 FINDINGS: Single view of chest obtained. Hypoexpanded exam. No focal airspace consolidation or pulmonary edema. No gross osseous destructive l esion IMPRESSION: * No focal airspace consolidation. Electronically signed by: Aris Solis MD (11/08/2020 7:34 AM) [id number]
[2020-11-08] MEDS ORDERED: IOHEXOL 350 MG/ML 100 ML VIAL. IV ONE (08:45)
[2020-11-08] MEDS ORDERED: CONTRAST GIVEN. MC PRN (09:00)
--- NOTE | 2020-11-08 09:57 | RAD ---
EXAM: CT chest with contrast - pulmonary embolus protocol CLINICAL HISTORY: Near syncope, high dimer COMPARISON: None. TECHNIQUE: CT of the chest following the administration of intravenous contrast during the pulmonary arterial phase. Axial, coronal and sagittal reformatted images were generated including MIP images. ---PQRS compliance statement - One or more of the following individualized dose reduction techniques were utilized for this study: 1. Automated exposure control 2. Adjustment of the mA and/or kV according to patient size 3. Use of iterative reconstruction technique--- FINDINGS: CHEST: Diagnostic quality: Adequate. Pulmonary emboli: None seen Right heart strain: None Pulmonary arteries: Normal in caliber. Heart is not enlarged. No pericardial effusion. No pleural effusion. No pneumothorax. No mediastinal or hilar lymphadenopathy. No axillary lymphadenopathy. No suspicious lung nodule or mass. No lobar consolidation. Visualized Upper abdomen: Cholecystectomy clips are seen. Bones: No aggressive osseous lesion is seen. IMPRESSION: 1. No evidence for acute pulmonary embolus. Electronically signed by: Magdy Orozco MD (11/08/2020 9:54 AM) [facility]
[2020-11-08 11:28] VITALS: BP 95/55
[2020-11-08 11:36] LABS: BILIRUBIN,URINE NEGATIVE (NEG); CLARITY,URINE CLEAR; COLOR,URINE YELLOW; NITRITE,URINE NEGATIVE (NEG); PH,URINE 5.5 (<5.0-8.0); PROTEIN,URINE 30 mg/dL (NEG-TRACE)
[2020-11-08 11:43] LABS: AMPHETAMINE/METHAMPHETAMINE POS (NEG); BARBITURATES NEG (NEG); BENZODIAZEPINES NEG (NEG); CANNABINOIDS NEG (NEG); COCAINE POS (NEG); METHADONE NEG (NEG); OPIATES NEG (NEG); PHENCYCLIDINE NEG (NEG)
[2020-11-08 11:48] LABS: BACTERIA,URINE 0 /HPF (0-FEW); HYALINE CASTS, URINE OCCASIONAL /HPF; WBC,URINE 0 /HPF (0-4)
== END 2020-11-08 11:33 | disposition home or self-care (01) ==
LOC: ER 06:43
DX: R42 Dizziness and giddiness (principal); R51.9 Headache, unspecified; R61 Generalized hyperhidrosis; Z72.0 Tobacco use
CPT/HCPCS: 36415; 71045; 71275; 80053; 80307; 81001; 83735; 83880; 84100; 84484; 85025; 85379; 96360; 96361; 99285; G0480; J7030; Q9967